=== PATIENT | female | born 1965 | race Caucasian/White ===

== ENCOUNTER 2023-04-12 08:11 | Emergency (ER) | payer OTHER ==
[~2023-04-12] VITALS: Ht 157.5 cm; Wt 63.6 kg
[2023-04-12 08:52] LABS: BASOPHILS % (AUTO) 0.4 % (0.0-2.0); EOSINOPHILS % (AUTO) 0.3 % (1.0-6.0); HEMATOCRIT 40.8 % (36-46); HEMOGLOBIN 13.7 g/dL (12.0-16.0); LYMPHOCYTES # (AUTO) 0.5 K/uL (1.0-4.8); LYMPHOCYTES % (AUTO) 6.2 % (22.0-44.0); MEAN CORPUSCULAR HEMOGLOBIN 30.2 pg (26.0-34.0); MEAN CORPUSCULAR HGB CONC 33.5 G/dL (31.0-37.0); MEAN CORPUSCULAR VOLUME 90 fL (80-100); MONOCYTES # (AUTO) 0.4 K/uL (0.1-1.0); MONOCYTES % (AUTO) 5.2 % (2.0-9.0); NEUTROPHILS # (AUTO) 7.4 K/uL (1.8-7.7); PLATELET COUNT (AUTO) 230 K/uL (150-450); RED BLOOD CELL COUNT(AUTO) 4.53 MIL/uL (4.00-5.20); RED CELL DISTRIBUTION WIDTH 13.4 % (11.5-14.5); WHITE BLOOD COUNT (AUTO) 8.4 K/uL (4.5-11.0)
[2023-04-12 08:58] LABS: NEUTROPHILS % (AUTO) 87.9 % (40.0-70.0)
[2023-04-12 09:00] LABS: ANION GAP 10 mmol/L (8-16); CALCIUM, TOTAL 8.9 mg/dL (8.8-10.5); CARBON DIOXIDE 27 mmol/L (22-29); CHLORIDE 99 mmol/L (98-107); CREATININE 1.02 mg/dL (0.60-1.30); GLOMERULAR FILTR. RATE CALC 55 mL/min (>60); GLUCOSE,RANDOM 128 mg/dL (70-110); POTASSIUM 3.2 mmol/L (3.5-5.1); SODIUM SERUM 136 mmol/L (136-145); UREA NITROGEN, BLOOD 29 mg/dL (7-18)
[2023-04-12 09:08] LABS: ALCOHOL, BLOOD (SERUM) < 3 mg/dL (0-10)
[2023-04-12 09:17] LABS: RBC MORPHOLOGY COMMENT NORMAL RBC MORPH
[2023-04-12] MEDS ORDERED: CEPHALEXIN MONOHYDRATE 500 MG CAPSULE PO ONE (10:45)
[2023-04-12] MEDS ORDERED: HYDROCODONE/ACETAMINOPHEN 5-325 MG TABLET PO ONE (10:45)
[2023-04-12] MEDS ORDERED: KETOROLAC TROMETHAMINE 60 MG/2 ML VIAL IM ONE (10:45)
[2023-04-12] MEDS ORDERED: HYDR-4072 PO (14:27)
[2023-04-12] MEDS ORDERED: IBUP-1554 PO (14:27)
[2023-04-12] MEDS ORDERED: AMOX1TAB16 PO (14:27)
[2023-04-12] MEDS ORDERED: IBUPROFEN 400 MG TABLET PO ONE (14:45)
[2023-04-12] MEDS ORDERED: POTASSIUM CHLORIDE 10% 40 MEQ/30 ML LIQUID UDCUP PO ONE (14:45)
[2023-04-12 17:18] VITALS: BP 122/72; PULSE 69; RESP 16; TEMP 98
== END 2023-04-12 17:55 | disposition home or self-care (01) ==
LOC: EMS 08:15
DX: K11.20 Sialoadenitis, unspecified (principal); E87.6 Hypokalemia; F20.9 Schizophrenia, unspecified; F41.9 Anxiety disorder, unspecified; F17.210 Nicotine dependence, cigarettes, uncomplicated; F15.90 Other stimulant use, unspecified, uncomplicated; Z98.890 Other specified postprocedural states; Z59.00 Homelessness unspecified
CPT/HCPCS: 99285; 70486; 80048; 85025; 36415; 70490; 96372; G0480; J1885

== ENCOUNTER 2023-05-13 18:36 | Emergency (ER) | payer OTHER ==
[~2023-05-13] VITALS: Ht 160 cm; Wt 54.5 kg
[~2023-05-13 18:36] MED LIST: AMOX1TAB16 PO; HYDR-4072 PO; IBUP-1554 PO
[2023-05-13 20:01] VITALS: BP 180/100; PULSE 88; RESP 17; TEMP 98.6
[2023-05-13] MEDS ORDERED: LIDOCAINE 1% 10 ML VIAL PERC ONE (20:15)
[2023-05-13] MEDS ORDERED: CEPH-558 PO (21:14)
[2023-05-13] MEDS ORDERED: DOXY-354 PO (21:14)
[2023-05-13] MEDS ORDERED: CEPHALEXIN MONOHYDRATE 500 MG CAPSULE PO ONE (21:15)
[2023-05-13] MEDS ORDERED: IBUP-1492 PO (21:15)
[2023-05-13] MEDS ORDERED: DOXYCYCLINE HYCLATE 100 MG TABLET PO ONE (21:15)
== END 2023-05-13 21:52 | disposition home or self-care (01) ==
LOC: EMS 18:37
DX: H60.13 Cellulitis of external ear, bilateral (principal); F41.9 Anxiety disorder, unspecified; F20.9 Schizophrenia, unspecified; F17.210 Nicotine dependence, cigarettes, uncomplicated; F15.90 Other stimulant use, unspecified, uncomplicated; F14.90 Cocaine use, unspecified, uncomplicated
CPT/HCPCS: 69000; 99283; J3490